=== PATIENT | female | born 1995 | race Caucasian/White ===

== ENCOUNTER 2023-02-05 11:37 | Emergency (ER) | payer OTHER, SELFPAY ==
[2023-02-05 11:52] VITALS: BP 134/84; PULSE 90; RESP 18; TEMP 36.9; O2SAT 100; BMI 22.4
--- NOTE | 2023-02-05 12:04 | ED_ITS ---
HPI - Dental/Oral General: Chief complaint: Dental/Oral Stated complaint: Tooth pain Time Seen by Provider: 02/05/23 11:56 History of Present Illness: Patient presents to the ER with complaints of dental pain secondary to dental caries. Patient states her bottom right back 2 molars have been giving her pain causing her jaw to swell up into her ear and down into her throat. Patient states she is on amoxicillin but is not working. She says she already has an appointment with an oral surgeon secondary to the patient stating the numbing medicine does not work with her. Review of Systems General: Reports: 10 or more systems reviewed and unremarkable except in HPI and below Physical Exam Const: COMMON NORMALS: no acute distress, average body habitus, patient oriented x3, no limitations, healthy appearing, alert and well nourished HENMT: COMMON NORMALS: normocephalic, atraumatic, hearing grossly normal bilaterally, external ears normal, Normal external nose present, moist oral mucous membranes and oropharynx normal; dentition not normal (2 very carious teeth in the right rear molar region) HEAD & SCALP: normocephalic and atraumatic NOSE: Normal external nose present EXTERNAL EAR: Yes external ears normal Neck/C-Spine: COMMON NORMALS: full ROM, no lymphadenopathy, supple, no meningeal signs, no JVD and Thyroid normal THYROID: Thyroid normal Chest: COMMONS NORMALS: normal inspection of the chest and normal palpation of entire chest wall Resp: COMMON NORMALS: normal respiratory effort, No retractions, No use of accessory muscles and clear to auscultation bilaterally AUSCULTATION: clear to auscultation bilaterally Cardio: COMMON NORMALS: no JVD, regular rate, regular rhythm, S1 normal heart sound present, S2 normal heart sound present, No gallops present (Cardio), No clicks present (Cardio), No murmurs present (Cardio) and No rub (Cardio) RATE: regular rate RHYTHM: regular rhythm HEART SOUNDS: S1 normal heart sound present and S2 normal heart sound present Neuro: COMMON NORMALS: patient oriented x3 SENSORIUM/ORIENTATION: Yes alert MENINGEAL SIGNS: Yes no meningeal signs Course Vital Signs: Vital signs: Vital Signs Temperature 98.4 F 02/05/23 11:52 Pulse Rate 90 02/05/23 11:52 Respiratory Rate 18 02/05/23 11:52 Blood Pressure 134/84 02/05/23 11:52 Pulse Oximetry 100 02/05/23 11:52 Oxygen Delivery Me thod Room Air 02/05/23 11:52 MDM - Dental/Oral Medical Decision Making Patient presents with dental caries causing pain. Patient is already on amoxicillin. We will have the patient's stop the amoxicillin and start clindamycin and meloxicam and keep her appointment as previously scheduled with oral surgeon for definitive treatment. Differential Diagnosis Likely dental caries and toothache Medical Records I reviewed the patient's medical records. Lab Data I reviewed the patient's lab results. No radiology studies performed this visit Discharge Plan Discharge Patient Disposition: Home Clinical Impression: Toothache, Dental caries Condition: Stable Discharge Orders: Discharge ED (Routine); Ordered 02/05/23 Ordered By: Juan Gauthier Patient Instructions: Toothache (ED) Activity Restrictions/Additional Instructions: Please take all your medicine as directed. Please keep your appointment with your oral surgeon for definitive treatment. Coding Level of Care Code ED Managed Care Liaison for Genny Wagner
== END 2023-02-05 12:34 | disposition home or self-care (01) ==
PROVIDERS: Emergency Provider Emergency Medicine
DX: K02.9 Dental caries, unspecified (principal)
CPT/HCPCS: 99283

== ENCOUNTER 2023-09-14 21:16 | Emergency (ER) | payer OTHER, SELFPAY ==
[2023-09-14 21:43] VITALS: BP 126/88; PULSE 92; RESP 14; TEMP 36.8; O2SAT 99
--- NOTE | 2023-09-14 21:56 | W.ED.DENTAL ---
HPI - Dental/Oral General: Chief complaint: Dental/Oral Stated complaint: Mouth pain Time Seen by Provider: 09/14/23 21:43 History of Present Illness: 27-year-old female comes in today with left lower jaw pain. Patient reports pain refers to her left ear. Patient appears nontoxic. Patient appears mild pain. Review of Systems General: Reports: 10 or more systems reviewed and unremarkable except in HPI and below [facility] ED Female Reproductive History: Date of last menstrual period: 09/08/23 Physical Exam Const: COMMON NORMALS: alert HENMT: COMMON NORMALS: normocephalic HEAD & SCALP: normocephalic TEETH & GINGIVA: Yes other (Carious second and third molar left lower jaw) Neck/C-Spine: COMMON NORMALS: full ROM Resp: COMMON NORMALS: normal respiratory effort Cardio: COMMON NORMALS: regular rate RATE: regular rate GI: COMMON NORMALS: non-tender Back/Pelvis: COMMON NORMALS: thoracic and lumbar spine normal to inspection Extremity: COMMON NORMALS: full ROM Neuro: SENSORIUM/ORIENTATION: Yes alert Skin: COMMON NORMALS: turgor normal GENERAL SKIN EXAM: turgor normal Course Vital Signs: Vital signs: Vital Signs Temperature 98.3 F 09/14/23 21:43 Pulse Rate 92 09/14/23 21:43 Respiratory Rate 14 09/14/23 21:43 Blood Pressure 126/88 09/14/23 21:43 Pulse Oximetry 99 09/14/23 21:43 Oxygen Delivery Me thod Room Air 09/14/23 21:43 MDM - Dental/Oral Medical Decision Making 27-year-old female comes in today for pain to the left lower jaw. On exam patient has significant decay to the second and third molar. Minimal gingival swelling and redness is noted. Posterior pharynx is normal. Differential diagnosis abscess, dental pain, dental caries. Reviewed exam with patient with recommendation for treatment and follow-up. Patient reported understanding and agrees with plan. No radiology studies performed this visit Discharge Plan Discharge Patient Disposition: Home Clinical Impression: Dental abscess, Toothache Condition: Stable Prescriptions: New amoxicillin-pot clavulanate 875-125 mg tablet 1 tab PO BID Qty: 14 0RF Lidocaine Viscous 2 % solution 1 applic mucous membrane Q3H PRN (Reason: pain) Qty: 100 0RF ketorolac 10 mg tablet 10 mg PO Q6H PRN (Reason: pain) 5 Days Qty: 10 0RF No Action meloxicam 7.5 mg tablet 7.5 mg PO .Twice daily Qty: 14 0RF Discharge Orders: Discharge ED (Routine); Ordered 09/14/23 Ordered By: Israel Peterson Discharge Diet: Usual diet Discharge Activity: Increase activity as tolerated Patient Instructions: Toothache (ED) Activity Restrictions/Additional Instructions: Home and rest. Take medication as directed. Follow-up with dentist for definitive care. Return to ED for new concerns. Coding Level of Care Code ED Garage Door Installer for Genny Wagner
[2023-09-14] MEDS: ketorolac 10 mg Tablet PO (22:20)
[2023-09-14] MEDS: amoxicillin-clav 875-125 mg Tablet 1 TAB PO (22:21)
[2023-09-14] MEDS: lidocaine 2% viscous 15 mL UDC 5 ML MUCOUS MEM (22:21)
[2023-09-14 22:44] VITALS: BP 117/89; PULSE 83; RESP 14; O2SAT 97
== END 2023-09-14 22:45 | disposition home or self-care (01) ==
PROVIDERS: Emergency Provider Nurse Practitioner Family
DX: K04.7 Periapical abscess without sinus (principal); K08.89 Other specified disorders of teeth and supporting structures
CPT/HCPCS: 99283